=== PATIENT | female | born 1965 | race Caucasian/White ===

== ENCOUNTER 2020-11-13 23:54 | Observation (INO) ==
[2020-11-14] MEDS ORDERED: Isovue-370 500 ML BOTTLE IVP ONE (00:28)
[2020-11-14] MEDS ORDERED: Ondansetron 4 MG/2 ML VIAL IVP ONE ×2 (00:32→03:20)
[2020-11-14] MEDS ORDERED: *HR* FentaNYL (PF) 100 MCG/2 ML VIAL IVP ONE (00:32)
[2020-11-14 01:07] LABS: Bilirubin,Urine Negative (Negative); Blood,Urine Small (Negative); Clarity,Urine Clear (Clear); Color,Urine Light-Yellow (Yellow); Glucose,Urine (UA) Normal (Normal); Ketones,Urine Trace mg/dL (Negative); Leukocyte Esterase,Urine Negative (Negative); Mucus,Urine Few per lpf (None-Few); Nitrite,Urine Negative (Negative); PH,Urine 6.5 pH Units (5.0-8.0); Protein,Urine Trace mg/dL (Neg-Trace); Specific Gravity,Urine 1.019 (1.010-1.025); Squamous Epithelial Cell,Urine Few per hpf (None-Few); Urobilinogen,Urine Normal (Normal); WBC,Urine 0-3 per hpf (0-3)
[2020-11-14 01:55] LABS: Basophils # 0.1 K/mcL (0.0-0.2); Basophils % 0.4 %; Eosinophils % 0.1 %; Hematocrit 37.2 % (35.3-44.9); Hemoglobin 12.4 g/dL (11.5-15.4); Immature Granulocytes % 0.3 % (0-4); Lymphocytes # 1.1 K/mcL (0.6-4.6); Lymphocytes % 7.4 %; Mean Corpuscular HGB Conc 33.3 g/dL (31.6-35.5); Mean Corpuscular Hemoglobin 29.2 pg (28.0-33.3); Mean Corpuscular Volume 87.7 fL (83.0-100.0); Mean Platelet Volume 9.8 fL (9.4-12.4); Monocytes # 0.6 K/mcL (0.0-1.3); Monocytes % 4.1 %; Neutrophils # 12.4 K/mcL (1.6-8.9); Platelet Count 255 K/mcL (140-400); Red Blood Count 4.24 M/mcL (3.82-4.97); Red Cell Distribution Width 13.1 % (11.5-14.5); Segmented Neutrophils % 87.7 %; White Blood Count 14.1 K/mcL (4.3-11.1)
[2020-11-14 02:14] LABS: Alanine Aminotransferase 25 Units/L (7-52); Albumin/Globulin Ratio 1.5 (1.1-2.2); Alkaline Phosphatase 90 Units/L (34-104); Aspartate Amino Transferase 19 Units/L (13-39); BUN/Creatinine Ratio 20 (6-26); Bilirubin,Direct 0.1 mg/dL (0.0-0.2); Bilirubin,Indirect 0.3 mg/dL (0.0-1.0); Bilirubin,Total 0.4 mg/dL (0.3-1.0); Blood Urea Nitrogen 14 mg/dL (6-20); Calcium 9.3 mg/dL (8.6-10.3); Carbon Dioxide 24 mEq/L (23-29); Chloride 105 mEq/L (98-107); Globulin 2.7 g/dL (2.4-3.5); Glucose 124 mg/dL (70-105); Lipase 25 Units/L (11-82); Osmolality,Calculated 292 (280-300); Potassium 3.4 mEq/L (3.5-5.1); Sodium 140 mEq/L (136-145); Total Protein 6.7 g/dL (6.4-8.9); eGFR For African Americans > 60 (> 60); eGFR For Non-African Americans > 60 (> 60)
[2020-11-14 02:22] LABS: Troponin I < 0.03 ng/mL (< 0.04)
[2020-11-14] MEDS ORDERED: *HR* HYDROmorphone (PF) 1 MG/ML SYRINGE IVP ONE (03:20)
[2020-11-14] MEDS ORDERED: Piperacillin/Tazobactam 3.375 GM in 0.9 % Sodium Chloride Mini Bag 100 ML IVPB ONE (03:26)
[2020-11-14] MEDS ORDERED: Ondansetron 4 MG/2 ML VIAL IVP PRN ×2 (05:01→13:41)
[2020-11-14] MEDS: 0.9 % Sodium Chloride 1,000 ML IVC SCH ×2 (05:27→15:59)
[2020-11-14] MEDS ORDERED: cefOXitin 1,000 MG, 0.9 % Sodium Chloride 1,000 ML IR ONE ×2 (07:00→13:41)
[2020-11-14] MEDS ORDERED: Famotidine 20 MG/2 ML VIAL ONE (11:04)
[2020-11-14] MEDS ORDERED: Acetaminophen IV 1,000 MG/100 ML BAG IVPB ONE ×3 (11:04→13:41)
[2020-11-14] MEDS ORDERED: *HR* FentaNYL (PF) 100 MCG/2 ML VIAL ONE ×2 (11:14→12:31)
[2020-11-14] MEDS ORDERED: *HR* Midazolam HCl 2 MG/2 ML VIAL ONE (11:14)
[2020-11-14] MEDS ORDERED: *HR* Rocuronium Bromide 50 MG/5 ML VIAL ONE (11:16)
[2020-11-14] MEDS ORDERED: Ondansetron 4 MG/2 ML VIAL ONE (11:16)
[2020-11-14] MEDS ORDERED: *HR* Propofol 200 MG/20 ML VIAL IVP ONE (11:16)
[2020-11-14] MEDS ORDERED: Lidocaine HCL 4 ML Topical Solution (Laryng-O-Jet Kit Sterile Pak) TP ONE (11:16)
[2020-11-14] MEDS ORDERED: Lidocaine -MPF 2% 2 ML VIAL ONE (11:16)
[2020-11-14] MEDS ORDERED: Pregabalin 75 MG CAPSULE PO ONE ×2 (11:19→13:41)
[2020-11-14] MEDS ORDERED: *HR* OxyCODONE Immed Rel 5 MG TABLET PO PRN ×2 (11:19→13:41)
[2020-11-14] MEDS ORDERED: *HR* HYDROmorphone (PF) 1 MG/ML SYRINGE IVP PRN ×2 (11:19→13:41)
[2020-11-14] MEDS ORDERED: Scopolamine Patch 1.5 MG PATCH.TD72 TD PRN ×2 (11:19→13:41)
[2020-11-14] MEDS ORDERED: *HR* Labetalol 20 MG/4 ML SYRINGE IVP PRN ×2 (11:19→13:41)
[2020-11-14] MEDS ORDERED: *HR* HYDROmorphone 2 MG TABLET PO PRN ×2 (11:19→13:41)
[2020-11-14] MEDS ORDERED: Sugammadex Sodium 200 MG/2 ML VIAL IV ONE (11:58)
[2020-11-14] MEDS ORDERED: Piperacillin/Tazobactam 3.375 GM in 0.9 % Sodium Chloride Mini Bag 100 ML IVPB SCH (12:00)
[2020-11-14] MEDS: Piperacillin/Tazobactam 3.375 GM in 0.9 % Sodium Chloride Mini Bag 100 ML IVPB SCH (19:51)
[2020-11-15] MEDS: Piperacillin/Tazobactam 3.375 GM in 0.9 % Sodium Chloride Mini Bag 100 ML IVPB SCH (04:46)
[2020-11-15] MEDS: 0.9 % Sodium Chloride 1,000 ML IVC SCH ×3 (08:03→08:04)
[2020-11-15 08:04] VITALS: BP 127/79
== END 2020-11-15 09:39 | disposition home or self-care (01) ==
LOC: EMEROOARM 23:54 → 3ANU 23:54
PROVIDERS: ADMIT Internal Medicine; ATTEND Surgery